=== PATIENT | female | born 1995 | race African-American/Black ===

== ENCOUNTER 2016-11-24 16:43 | Inpatient (IN) ==
[2016-11-24] MEDS ORDERED: STADOL IV PRN (18:10)
[2016-11-24] MEDS ORDERED: LR 500 ML IV ONE (18:10)
[2016-11-24 19:41] LABS: BASO% 0.1 % (0.0-0.8); EOS# 0.09 X1000 (0.0-0.7); EOS% 1.2 % (0.0-10.0); HEMOGLOBIN 9.1 g/dL (12.0-16.0); IMM GRAN# 0.02 X1000 (0.0-0.04); IMM GRAN% 0.3 % (0.0-0.5); LYMPH# 2.67 X1000 (1.2-3.4); LYMPH% 34.6 % (20.5-51.1); MANUAL DIFF NEEDED? YES; MCH 21.5 PG (27-31); MCHC 31.4 g/dL (33-37); MCV 68.6 FL (81-99); MONO# 0.53 X1000 (0.11-0.59); MONO% 6.9 % (1.7-9.3); MPV 10.8 FL (7.4-10.4); NEUT% 56.9 % (42.2-75.2); PLT 163 X1000 (130-400); RBC 4.23 XMIL (4.2-5.4)
[2016-11-24] MEDS: LR 1,000 ML IV SCH (19:50)
[2016-11-24 19:55] LABS: LYMPHS 39 % (21-51); MONO 5 % (1-9)
[2016-11-24] MEDS: STADOL IV PRN ×2 (19:55→20:55)
[2016-11-24] MEDS ORDERED: XYLOCAINE-MPF 1% ONE (20:37)
[2016-11-24] MEDS ORDERED: PITOCIN 30 UNITS/LR 500 ML ONE (20:37)
[2016-11-24] MEDS ORDERED: MINERAL OIL ONE (20:37)
[2016-11-24] MEDS ORDERED: BENADRYL PO PRN (20:59)
[2016-11-24] MEDS ORDERED: MINERAL OIL MISC PRN (20:59)
[2016-11-24] MEDS ORDERED: M-M-R II VACCINE SUBQ ONE (20:59)
[2016-11-24] MEDS ORDERED: PITOCIN IM PRN (20:59)
[2016-11-24] MEDS ORDERED: MOTRIN PO PRN (20:59)
[2016-11-24] MEDS ORDERED: BOOSTRIX VACCINE IM ONE (20:59)
[2016-11-24] MEDS ORDERED: PITOCIN 30 UNITS/LR 500 ML IV ONE (20:59)
[2016-11-24] MEDS ORDERED: HYDROXYZINE IM PRN (20:59)
[2016-11-24] MEDS ORDERED: XYLOCAINE-MPF 1% INJ PRN (20:59)
[2016-11-24] MEDS ORDERED: HYDROXYZINE PO PRN (20:59)
[2016-11-24] MEDS ORDERED: AMBIEN PO PRN (20:59)
[2016-11-24] MEDS ORDERED: PERI MEDS (DERMOPLAST/NUPERCAINAL/TUCKS) MISC PRN (20:59)
[2016-11-24] MEDS ORDERED: BENADRYL IV PRN (20:59)
[2016-11-24] MEDS ORDERED: NORCO-5 PO PRN (20:59)
[2016-11-24] MEDS ORDERED: PERICOLACE PO SCH (21:00)
[2016-11-24] MEDS ORDERED: PITOCIN 20 UNITS/LR 1,000 ML IV SCH (21:00)
[2016-11-24 21:38] LABS: URINE SOURCE VOIDED
[2016-11-24 21:59] LABS: BILIRUBIN URINE NEGATIVE (NEGATIVE); BLOOD URINE 4+ (NEGATIVE); CLARITY SL. CLOUDY (CLEAR); COLOR YELLOW; GLUCOSE URINE NEGATIVE (NEGATIVE); LEUKOCYTES URINE 2+ (NEGATIVE); NITRITE URINE NEGATIVE (NEGATIVE); PROTEIN URINE 1+(30 mg/dL) mg/dL (NEGATIVE); SP GRAVITY URINE 1.015; UROBILINOGEN URINE NORMAL
[2016-11-24] MEDS: CYTOTEC PO SCH (23:52)
[2016-11-25] MEDS: NORCO-10 PO PRN ×2 (01:21→07:20)
[2016-11-25] MEDS: CYTOTEC PO SCH (05:48)
[2016-11-25 05:57] LABS: HEMATOCRIT 29.8 % (37.0-47.0); MCHC 30.2 g/dL (33-37); MCV 69.5 FL (81-99); MPV 10.4 FL (7.4-10.4); RBC 4.29 XMIL (4.2-5.4)
[2016-11-25 07:32] VITALS: BP 118/71
--- NOTE | 2016-11-25 08:56 | Diag Imaging Result Document ---
PROCEDURE NAME: US Jelani Ervin (LIMITED) - 11/24/2016 OBSTETRICAL ULTRASOUND, LIMITED: FINDINGS: By history, the patient is 37 weeks . There is no cardiac activity. There is no movement. There is little amniotic fluid seen. IMPRESSION: demise. Preliminary results were provided on the evening of 11/24/2016.
[2016-11-25] MEDS: LR 1,000 ML IV SCH (09:16)
== END 2016-11-25 11:10 | disposition home or self-care (01) | DRG 775 ==
LOC: P.LD 16:43 → P.OPLD 16:43 → P.LD 17:52 → P.OPLD 17:52
PROVIDERS: ADMIT Obstetrics & Gynecology; ATTEND Obstetrics & Gynecology
PROC: 10E0XZZ Delivery of Products of Conception, External Approach (ICD-10-PCS; principal; 2016-11-24)
PROC: 10907ZC Drainage of Amniotic Fluid, Therapeutic from Products of Conception, Via Natural or Artificial Opening (ICD-10-PCS; 2016-11-24)
DX: O36.4XX0 Maternal care for intrauterine death, not applicable or unspecified (principal); Z37.1 Single stillbirth; O69.1XX0 Labor and delivery complicated by cord around neck, with compression, not applicable or unspecified; Z3A.37 37 weeks gestation of pregnancy
CPT/HCPCS: 36415; 76815; 81003; 84443; 85025; 85027; 85460; 85612; 85613; 85730; 86147; 86592; J0595; J2590; J7120; 86747-59